=== PATIENT | male | born 1960 | race Caucasian/White ===

== ENCOUNTER 2023-07-28 11:37 | Day surgery (SDC) | payer OTHER ==
[2023-07-28] VITALS (7 sets, daily range): BP systolic 122–145; BP diastolic 77–91; PULSE 58–64; RESP 15–16; TEMP 97.8; O2SAT 96–98
[~2023-07-28] VITALS: Ht 190.5 cm; Wt 91.9 kg
[2023-07-28] MEDS ORDERED: UBID50TA3 PO (12:09)
[2023-07-28] MEDS ORDERED: ALOG12.52 PO (12:09)
[2023-07-28] MEDS ORDERED: CARV3.12 PO (12:09)
[2023-07-28] MEDS ORDERED: PIOG15TA8 PO (12:09)
[2023-07-28] MEDS ORDERED: ATOR20TA66 PO (12:09)
[2023-07-28] MEDS ORDERED: AMLO10TA13 PO (12:09)
[2023-07-28] MEDS ORDERED: ASPI81TA52 PO (12:09)
[2023-07-28] MEDS ORDERED: CHLO25TA10 PO (12:09)
[2023-07-28] MEDS ORDERED: INSU100V12 SQ ×2 (12:09)
[2023-07-28] MEDS ORDERED: INSU100I8 SQ (12:09)
[2023-07-28] MEDS ORDERED: GABA300T25 PO (12:09)
[2023-07-28 12:34] LABS: BASOPHILS % (AUTO) 0.8 % (0-1); EOSINOPHILS # (AUTO) 0.1 X10'3 (0-0.9); EOSINOPHILS % (AUTO) 2.1 % (0-6); HEMATOCRIT 40.5 % (42.0-52.0); HEMOGLOBIN 13.9 g/dl (14.0-17.9); LYMPHOCYTES # (AUTO) 1.4 X10'3 (1.1-4.8); LYMPHOCYTES % (AUTO) 28.5 % (21-51); MEAN CORPUSCULAR HEMOGLOBIN 31.7 PG (27.0-31.0); MEAN CORPUSCULAR HGB CONC 34.2 g/dL (33.0-36.5); MEAN CORPUSCULAR VOLUME 92.6 FL (78-98); MEAN PLATELET VOLUME 7.5 FL (7.4-10.4); MONOCYTES # (AUTO) 0.5 X10'3 (0-0.9); MONOCYTES % (AUTO) 9.8 % (2-12); NEUTROPHILS # (AUTO) 2.9 X10'3 (1.8-7.7); NEUTROPHILS % (AUTO) 58.8 % (42-75); PLATELET COUNT 166 X10'3 (140-440); RED BLOOD COUNT 4.38 X10'6 (4.70-6.10); RED CELL DISTRIBUTION WIDTH 13.1 % (11.5-14.5); WHITE BLOOD COUNT 4.9 X10'3 (4.5-11.0)
[2023-07-28] MEDS: diphenhydrAMINE 25mg capsule PO PRN (12:40)
[2023-07-28] MEDS: LORazepam 0.5 MG tablet PO PRN (12:40)
[2023-07-28] MEDS: normal saline 1,000 ML IV SCH (12:41)
[2023-07-28 12:46] LABS: APTT 26 SECONDS (22-32); INR 1.1 INR; PROTHROMBIN TIME 11.3 SECONDS (9.0-12.0)
[2023-07-28 12:47] LABS: ALBUMIN 3.7 G/DL (3.4-5.0); ANION GAP 7 (8-16); BLOOD UREA NITROGEN 18 MG/DL (7-18); BUN/CREATININE RATIO 20.5 (10.0-20.0); CHLORIDE 103 MMOL/L (99-107); CHOL/HDL RATIO 2.3 (0.00-4.99); CHOLESTEROL 167 MG/DL (0-200); CREATININE 0.88 MG/DL (0.60-1.10); GLUCOSE 312 MG/DL (70-104); HDL CHOLESTEROL 74 MG/DL (35-60); LDL CHOLESTEROL 85 MG/DL (50-100); POTASSIUM 3.9 MMOL/L (3.5-5.1); SODIUM 137 MMOL/L (135-145); TOTAL CARBON DIOXIDE 27.2 MMOL/L (24-32); TRIGLYCERIDES 71 MG/DL (20-135); eCRCL 104 ML/MIN; eGFR 88 ML/MIN
[2023-07-28] MEDS ORDERED: heparin 1,000unit/ml 10ml vial 10 ML ONE (14:25)
[2023-07-28] MEDS ORDERED: midazolam 1 mg/ML 2ml injection ONE ×2 (14:25→15:06)
[2023-07-28] MEDS ORDERED: LIDOcaine 1% (10mg/ml) 2ml vial ONE (14:25)
[2023-07-28] MEDS ORDERED: verapamil 2.5 mg/ml inj IV ONE (14:25)
[2023-07-28] MEDS ORDERED: fentaNYL/PF 50MCG/1 ML 2ML syringe ONE (14:25)
[2023-07-28] MEDS ORDERED: iohexol 350MG/ML 100ml bottle IV ONE (14:27)
[2023-07-28] MEDS ORDERED: nitroGLYCERIN 500mcg/5mL D5W 5 ML IV ONE (14:31)
[2023-07-28] MEDS ORDERED: HYDROcodone/acetaminophen 5mg/325mg tablet PO PRN (15:55)
[2023-07-28] MEDS ORDERED: HYDROcodone/acetaminophen 10/325mg tab PO PRN (15:55)
== END 2023-07-28 17:30 | disposition home or self-care (01) ==
LOC: SSTAY O 11:37
PROVIDERS: ATTEND Student in an Organized Health Care Education/Training Program
DX: R07.9 Chest pain, unspecified (principal); I25.10 Atherosclerotic heart disease of native coronary artery without angina pectoris; I10 Essential (primary) hypertension; E11.9 Type 2 diabetes mellitus without complications; E78.5 Hyperlipidemia, unspecified
CPT/HCPCS: 36415; 80048; 80061; 82948; 85025; 85610; 85730; 93005; 93458; 99152; A6258; J1644; J2250; J3010; J3490; J7030; Q0163; Q9967; 96360; 99153; A6402; C1894